=== PATIENT | female | born 1970 | race Caucasian/White ===

== ENCOUNTER 2019-01-05 06:14 | Day surgery (SDC) | payer MEDICAID ==
[2019-01-05] MEDS ORDERED: ETOMIDATE 20 MG INJ (08:09)
[2019-01-05] MEDS ORDERED: LIDOCAINE 2% (SDV) 5 ML INJ (08:09)
[2019-01-05] MEDS ORDERED: PROPOFOL 20 ML (08:09)
[2019-01-05] MEDS ORDERED: MIDAZOLAM 1 MG/ML 2 ML INJ (08:10)
[2019-01-05] MEDS ORDERED: LIDOCAINE 4% SOLUTION 50 ML BTL (08:10)
[2019-01-05] MEDS ORDERED: FENTAnyl 50 MCG/ML VIAL (08:10)
== END 2019-01-05 11:27 | disposition home or self-care (01) ==
LOC: GIL 06:14
DX: K29.50 Unspecified chronic gastritis without bleeding (principal); K21.9 Gastro-esophageal reflux disease without esophagitis
CPT/HCPCS: 43239; 84703; 88305; 88312